=== PATIENT | male | born 1985 | race Caucasian/White ===

== ENCOUNTER 2017-03-13 08:07 | Emergency (ER) | payer BC ==
[2017-03-13 08:18] VITALS: BMI 30.7
--- NOTE | 2017-03-13 08:20 | PDOC ---
History of Present Illness - General History Source: Patient Exam Limitations: No Limitations - History of Present Illness Initial Comments: 03/13/17 09:18 The patient is a 31-year-old male, with no significant past medical history, who presents to the ED with fever, chills, productive cough, sore throat, bilateral ear pain and shortness of breath. Pt states that he woke up with a sore throat 2 days ago and has been drinking hot liquids. He reports that he normally brings up clear sputum since he has a prior smoking history, but today he noted his phlegm to be yellow in color. While sitting down for dinner yesterday, pt began to experience cait horse cramps in his legs bilaterally. Pts daughter has been sick for the past couple days with cold symptoms. He denies taking any Tylenol or Motrin today. He denies any nausea, vomiting, diarrhea, or abdominal pain. He denies any chest pain. <Janis Hidalgo - Last Filed: 03/13/17 09:18> <Marion Chanel - Last Filed: 03/13/17 10:47> - General Chief Complaint: Shortness of Breath Stated Complaint: SOB Time Seen by Provider: 03/13/17 08:13 Past History <Janis Hidalgo - Last Filed: 03/13/17 09:18> - Past Medical History COPD: No Other medical history: denies - Immunization History Immunization Up to Date: Yes - Suicide/Smoking/Psychosocial Hx Smoking History: Never smoked Hx Alcohol Use: No Drug/Substance Use Hx: No <Marion Chanel - Last Filed: 03/13/17 10:47> - Past Medical History Allergies/Adverse Reactions: Allergies Allergy/AdvReac Type Severity Reaction Status Date / Time No Known Allergies Allergy Verified 03/13/17 08:10 Home Medications: Ambulatory Orders Albuterol Sulfate Inhaler - [Ventolin HFA Inhaler -] 1 - 2 inh PO Q4H #1 inhaler 03/13/17 Inhaler, Assist Devices [Space Chamber Plus] 1 each QID PRN #1 spacer Review of Systems - Review of Systems Able to Perform ROS?: Yes Comments:: 03/13/17 09:19 GENERAL/CONSTITUTIONAL: +Chills, fever. No weakness. HEAD, EYES, EARS, NOSE AND THROAT: +Sore throat, bilateral ear pain. No change in vision. No ear discharge. CARDIOVASCULAR: +Shortness of breath. No chest pain. RESPIRATORY: +Cough. No wheezing, or hemoptysis. GASTROINTESTINAL: No nausea, vomiting, diarrhea or constipation. GENITOURINARY: No dysuria, frequency, or change in urination. MUSCULOSKELETAL: No joint swelling or pain. No neck or back pain. EXTREMITIES: +Lower extremity cramping. SKIN: No rash NEUROLOGIC: No headache, vertigo, loss of consciousness, or change in strength/ sensation. ENDOCRINE: No increased thirst. No abnormal weight change. HEMATOLOGIC/LYMPHATIC: No anemia, easy bleeding, or history of blood clots. ALLERGIC/IMMUNOLOGIC: No hives or skin allergy. <Janis Hidalgo - Last Filed: 03/13/17 09:18> *Physical Exam - Vital Signs Last Vital Signs Temp Pulse Resp BP Pulse Ox 99.2 F 115 H 26 H 145/99 100 03/13/17 08:10 03/13/17 08:10 03/13/17 08:10 03/13/17 08:10 03/13/17 08:10 - Physical Exam Comments: 03/13/17 09:22 GENERAL: Awake, alert, and fully oriented, in no acute distress HEAD: No signs of trauma EYES: PERRLA, EOMI, sclera anicteric, conjunctiva clear ENT: (+)nasal congestion. Auricles normal inspection, hearing grossly normal, nares patent, oropharynx clear without exudates. Moist mucosa NECK: Normal ROM, supple, no lymphadenopathy, JVD, or masses LUNGS: (+)Crackles at the bases, mild conversational dyspnea. Pulse ox 90 on room air. No wheezes. HEART: (+)Tachycardic. Normal S1 and S2, no murmurs, rubs or gallops ABDOMEN: Soft, nontender, normoactive bowel sounds. No guarding, no rebound. No masses EXTREMITIES: Normal range of motion, no edema. No clubbing or cyanosis. No cords, erythema, or tenderness NEUROLOGICAL: Cranial nerves II through XII grossly intact. Normal speech, normal gait SKIN: (+)Pt is clammy all over. Warm, normal turgor, no rashes or lesions noted <Janis Hidalgo - Last Filed: 03/13/17 09:18> - Vital Signs Last Vital Signs Temp Pulse Resp BP Pulse Ox 99.2 F 115 H 26 H 145/99 100 03/13/17 08:10 03/13/17 08:10 03/13/17 08:10 03/13/17 08:10 03/13/17 08:10 <Marion Chanel - Last Filed: 03/13/17 10:47> ED Treatment Course - LABORATORY CBC & Chemistry Diagram: 03/13/17 08:40 03/13/17 08:40 - ADDITIONAL ORDERS Additional order review: 03/13/17 08:40 RBC 4.93 MCV 89.5 MCHC 32.7 RDW 13.9 MPV 10.2 Neutrophils % 85.9 H Lymphocytes % 8.7 Monocytes % 5.1 Eosinophils % 0.1 Basophils % 0.2 - Medications Given in the ED: ED Medications Discontinued Medications Generic Name Dose Route Start Last Admin Trade Name Ke PRN Reason Stop Dose Admin Acetaminophen 1,000 mg 03/13/17 08:21 03/13/17 08:44 Ofirmev Injection - IVPB 03/13/17 08:22 1,000 mg ONCE ONE Administration Albuterol/Ipratropium 1 amp 03/13/17 08:21 03/13/17 08:44 Duoneb - NEB 03/13/17 08:22 1 amp ONCE ONE Administration Sodium Chloride 1,000 ml 03/13/17 08:21 03/13/17 08:44 Normal Saline - IV 03/13/17 08:22 1,000 ml ONCE ONE Administration <Janis Hidalgo - Last Filed: 03/13/17 09:18> - LABORATORY CBC & Chemistry Diagram: 03/13/17 08:40 03/13/17 08:40 <Marion Chanel - Last Filed: 03/13/17 10:47> Medical Decision Making - Medical Decision Making 03/13/17 10:01 a/p: 31yo male with sob/diaphoresis/fever -sore throat, ear congestion rhinorrhea productive cough has had flu vaccine resident here at the hospital will check labs, flu, rapid strep, dimer, tsh will give ivf hydration, tylenol, nebs cxr 03/13/17 10:03 after neb, pt feeling much better. lungs with soft end expiroatyr wheezing will give another neb flu negative, rapid strep unable to be performed, awaiting culture dimer pending 03/13/17 10:45 pt feeling much better. discussed dimer level. no pleuritic component. wants to hold off on the ct. vitals stable. ok to d/c to home free t4 penidng. will follow will add a1c will give pmd for follow up will give inhaler <Marion Chanel - Last Filed: 03/13/17 10:47> *DC/Admit/Observation/Transfer - Attestations Scribe Attestion: 03/13/17 09:27 Documentation prepared by Janis Hidalgo, acting as hospitalist medical director for Marion Chanel DO, MD. <Janis Hidalgo - Last Filed: 03/13/17 09:18> - Discharge Dispostion Admit: No - Attestations Physician Attestion: 03/13/17 10:47 I, Dr. Marion Chanel DO, attest that this document has been prepared under my direction and personally reviewed by me in its entirety. I further attest, that it accurately reflects all work, treatment, procedures and medical decision -making performed by me. <Marion Chanel - Last Filed: 03/13/17 10:47> Diagnosis at time of Disposition: Viral syndrome - Discharge Dispostion Disposition: HOME Condition at time of disposition: Stable - Prescriptions Prescriptions: Albuterol Sulfate Inhaler - [Ventolin HFA Inhaler -] 1 - 2 inh PO Q4H #1 inhaler Inhaler, Assist Devices [Space Chamber Plus] 1 each QID PRN #1 spacer PRN Reason: Wheezing - Referrals Referrals: Jalen Song MD [Staff Physician] - - Patient Instructions Printed Discharge Instructions: DI for Viral Syndrome, DI for Shortness of Breath Additional Instructions: Please follow up with your PMD. You have labs pending. I will call you with the results. Please return to the ED with any further concerns.
[2017-03-13] MEDS ORDERED: ACETAMINOPHEN 1000 MG/100 ML VIAL (NON FORMULARY) IVPB ONE (08:21)
[2017-03-13] MEDS ORDERED: ALBUTEROL SO4 2.5/IPRATROPIUM 0.5 INH SOL 3 ML VIAL.NEB. NEB ONE ×4 (08:21→09:28)
[2017-03-13] MEDS ORDERED: SODIUM CHLORIDE 0.9% 1000 ML INFUS.BAG IV ONE (08:21)
[2017-03-13] MEDS ORDERED: ACETAMINOPHEN INJECTION 100 ML IVPB ONE (08:32)
[2017-03-13 08:51] LABS: BASO % 0.2 % (0-2.0); EOS % 0.1 % (0-4.5); MCH 29.3 pg (25.7-33.7); MCHC 32.7 g/dl (32.0-35.9); MEAN CELL VOLUME 89.5 fl (80-96); MEAN PLT VOLUME 10.2 fl (7.5-11.1); NEUT % 85.9 % (42.8-82.8); PLATELET COUNT 137 K/MM3 (134-434); RDW 13.9 % (11.9-15.9); WHITE BLOOD COUNT 12.7 K/mm3 (4.0-10.0)
[2017-03-13 09:25] LABS: ALBUMIN 4.2 g/dl (3.4-5.0); ANION GAP 9 (8-16); BILIRUBIN,TOTAL 0.5 mg/dL (0.2-1.0); CALCIUM 8.9 mg/dL (8.5-10.1); CO2 24 mmol/L (21-32); CREATININE 0.8 mg/dL (0.7-1.3); GLUCOSE,RANDOM 114 mg/dL (74-106); SGOT/AST 16 U/L (15-37); SGPT/ALT 24 U/L (12-78); TOT PROT 8.1 g/dl (6.4-8.2)
[2017-03-13 09:26] LABS: ALK PHOS 65 U/L (45-117)
[2017-03-13 10:53] LABS: FREE T4 1.04 ng/dl (0.76-1.16)
[2017-03-13 11:00] VITALS: BP 144/88; PULSE 85; TEMP 98.7
== END 2017-03-13 11:00 | disposition home or self-care (01) ==
LOC: JER 08:07
PROC: 3E0337Z Introduction of Electrolytic and Water Balance Substance into Peripheral Vein, Percutaneous Approach (ICD-10-PCS; principal; 2017-03-13)
PROC: 3E033NZ Introduction of Analgesics, Hypnotics, Sedatives into Peripheral Vein, Percutaneous Approach (ICD-10-PCS; 2017-03-13)
PROC: 3E0F7GC Introduction of Other Therapeutic Substance into Respiratory Tract, Via Natural or Artificial Opening (ICD-10-PCS; 2017-03-13)
DX: B34.9 Viral infection, unspecified (principal)
CPT/HCPCS: 36415; 71020-TC; 80053; 83036; 83605; 83735; 84439; 84443; 85025; 85379; 87070; 87430; 87804; 99284-25